=== PATIENT | female | born 2005 | race Two or more races ===

== ENCOUNTER 2024-07-30 23:30 | Emergency (ER) | payer OTHER ==
[~2024-07-30] VITALS: Ht 157.5 cm; Wt 65.8 kg
[2024-07-31] MEDS ORDERED: DIPHENHYDRAMINE HCL 50 MG/ML VIAL 1ML IM STA (00:38)
[2024-07-31] MEDS ORDERED: METHYLPREDNISOLONE SOD SUCC 125 MG VIAL IM STA (00:39)
[2024-07-31] MEDS ORDERED: METHYLPREDNISOLONE SOD SUCC 125 MG VIAL IV STA (00:39)
[2024-07-31] MEDS ORDERED: DIPHENHYDRAMINE HCL 50 MG/ML VIAL 1ML IV STA (00:39)
[2024-07-31] MEDS ORDERED: FAMOtidine 10 MG/ML (4ML VIAL) IV PUSH STA (00:40)
== END 2024-07-31 01:48 | disposition home or self-care (01) ==
LOC: ER 23:32
DX: O99.713 Diseases of the skin and subcutaneous tissue complicating pregnancy, third trimester (principal); L50.9 Urticaria, unspecified; Z3A.30 30 weeks gestation of pregnancy

== ENCOUNTER 2024-08-01 12:17 | Emergency (ER) | payer OTHER ==
[~2024-08-01] VITALS: Ht 162.6 cm; Wt 61.2 kg
[2024-08-01] MEDS ORDERED: FAMOTIDINE/PF 20 MG/2 ML VIAL IV PUSH ONE (13:45)
[2024-08-01 14:19] LABS: HEMATOCRIT 37.2 % (36.0-45.00); MEAN CELL VOLUME 89.2 fL (80.00-100.00); MEAN CORPUSCULAR HEMOGLOBIN 31.3 pg (27.00-32.0); PLATELET COUNT 130 K/uL (150-450); RED BLOOD COUNT 4.17 M/uL (4.00-6.00)
[2024-08-01 14:33] LABS: PH,URINE 6.5 (5.0-8.0); URINE APPEARANCE Clear; URINE BILIRRUBIN Negative (NEGATIVE); URINE BLOOD Negative; URINE COLOR Dark Yellow; URINE GLUCOSE Negative (NEGATIVE); URINE KETONE Negative (NEGATIVE); URINE LEUKOCYTE Small; URINE NITRATE Negative; URINE PROTEIN Trace (NEGATIVE)
[2024-08-01 14:37] LABS: URINE BACTERIA 4678.2 uL (0.0-1933); URINE EPITHELIAL CELLS 26.2 uL (0.0-38.8); URINE RBC 8.3 uL (0.0-20.8); URINE WBC 117.4 uL (0.0-23.2)
[2024-08-01 14:46] LABS: URINE CAST 0.61 uL (0.0-1.40)
[2024-08-01 14:46] LABS: ALBUMIN 2.7 gm/dL (3.4-5.0); BILIRUBIN TOTAL 0.74 mg/dL (0.3-1.2); CALCIUM 8.8 mg/dL (8.5-10.1); CREATININE SERUM 0.5 mg/dL (0.55-1.02); GFR 158.94; GLOBULINA 3.6 G/DL (2.4-3.5); POTASSIUM 3.73 mEq/L (3.5-5.1); TOTAL PROTEIN 6.3 gm/dL (6.4-8.2)
[2024-08-01] MEDS ORDERED: DIPHENHYDRAMINE HCL 50 MG/ML VIAL 1ML IM ONE (15:15)
== END 2024-08-01 16:03 | disposition home or self-care (01) ==
LOC: ER 12:18
PROVIDERS: General Practice
DX: L50.9 Urticaria, unspecified (principal); R21 Rash and other nonspecific skin eruption; Z20.822 Contact with and (suspected) exposure to COVID-19

== ENCOUNTER 2025-08-29 06:56 | Inpatient (IN) | payer OTHER ==
[~2025-08-29] VITALS: Ht 162.6 cm; Wt 64.4 kg
[2025-08-29] VITALS (8 sets, daily range): BP systolic 121–136; BP diastolic 60–81
[2025-08-29] MEDS ORDERED: RINGERS SOLUTION,LACTATED 1,000 ML IV SCH (07:15)
[2025-08-29] MEDS ORDERED: OXYTOCIN 500 ML IV SCH (07:15)
[2025-08-29] MEDS ORDERED: PRENATA CHEWAB1 EACH PO (07:33)
[2025-08-29 08:02] LABS: BASO % 1.0 % (0.1-1.2); EOS # 0.11 (0.04-0.54); EOS % 1.2 % (0.7-7.0); LYMPH # 2.15 (1.18-3.74); LYMPH % 23.8 % (19.3-53.1); MEAN PLATELET VOLUME 12.10 fl (9.4-12.4); MONO # 0.80 (0.24-0.82); MONO % 8.8 % (4.7-12.5); NEUT # 5.79 (1.56-6.13); NEUT % 64.1 % (34.0-71.1); RED CELL DISTRIBUTION WIDTH 16.6 % (11.6-14.4)
[2025-08-29 08:10] LABS: URINE APPEARANCE Clear; URINE BILIRRUBIN Negative (NEGATIVE); URINE BLOOD Negative; URINE COLOR Yellow; URINE GLUCOSE Negative (NEGATIVE); URINE KETONE Negative (NEGATIVE); URINE LEUKOCYTE Large; URINE NITRATE Negative; URINE PROTEIN Negative (NEGATIVE); URINE UROBILINOGEN 1.0 E.U./dl
[2025-08-29 08:13] LABS: URINE BACTERIA 2083.1 uL (0.0-1933); URINE EPITHELIAL CELLS 30.7 uL (0.0-38.8); URINE WBC 119.6 uL (0.0-23.2)
[2025-08-29 08:32] LABS: INR < 0.93
[2025-08-29 08:37] LABS: URINE CAST 0.73 uL (0.0-1.40); URINE RBC 1.6 uL (0.0-20.8)
[2025-08-29 08:38] LABS: TYPE CELLS SQUAMOUS
[2025-08-29 08:39] LABS: URINE YEAST MODERATE /hpf
[2025-08-29 08:55] LABS: ALT/SGPT 19.0 U/L (12-78); AST/SGOT 22.0 U/L (15-37); BILIRUBIN TOTAL 0.7 mg/dL (0.3-1.2); BUN CREA RATIO 14.0 (7.0-25.0); CREATININE SERUM 0.43 mg/dL (0.55-1.02); GFR 187.2; GLOBULINA 3.3 G/DL (2.4-3.5); GLUCOSE FASTING 75.0 mg/dL (65-100); OSMOLALITY SERUM 276.0 MOSM/KG (275-295)
[2025-08-29] MEDS ORDERED: CHLORHEXIDINE GLUCONATE 120 ML BOTTLE TOP ONE (11:15)
[2025-08-29] MEDS ORDERED: ERYTHROMYCIN BASE OPHT 1GM EACH TUBE OP ONE (11:30)
[2025-08-29] MEDS ORDERED: LIDOCAINE HCL 1% 10ML VIAL PERCUT ONE (11:45)
[2025-08-30 00:29] VITALS: BP 130/75
[2025-08-30 08:31] VITALS: BP 123/78
[2025-08-30] MEDS ORDERED: MEASLES,MUMPS,RUBELLA VACC/PF 1 VIAL VIAL SUBCUTANEO NR (11:45)
[2025-08-30 12:45] LABS: BASO % 0.5 % (0.1-1.2); EOS # 0.05 (0.04-0.54); EOS % 0.4 % (0.7-7.0); LYMPH # 2.18 (1.18-3.74); LYMPH % 16.8 % (19.3-53.1); MEAN PLATELET VOLUME 11.80 fl (9.4-12.4); MONO # 0.74 (0.24-0.82); MONO % 5.7 % (4.7-12.5); NEUT # 9.81 (1.56-6.13); NEUT % 75.7 % (34.0-71.1); RED CELL DISTRIBUTION WIDTH 16.7 % (11.6-14.4)
[2025-08-30 13:05] VITALS: BP 113/74
[2025-08-30 16:00] VITALS: BP 121/80
[2025-08-31 00:54] VITALS: BP 128/75
[2025-08-31 04:53] VITALS: BP 124/80
[2025-08-31 08:24] VITALS: BP 115/75
[2025-08-31 16:00] VITALS: BP 111/66
== END 2025-08-31 18:25 | disposition home or self-care (01) | DRG 807 ==
LOC: OB/GYN 06:56 → LDR 06:56 → OB/GYN 10:22
PROVIDERS: Obstetrics & Gynecology; ADMIT Specialist; ATTEND Specialist
PROC: 10E0XZZ Delivery of Products of Conception, External Approach (ICD-10-PCS; principal; 2025-08-29)
PROC: 0KQM0ZZ Repair Perineum Muscle, Open Approach (ICD-10-PCS; 2025-08-29)
PROC: 4A1HXCZ Monitoring of Products of Conception, Cardiac Rate, External Approach (ICD-10-PCS; 2025-08-29)
DX: O70.1 Second degree perineal laceration during delivery (principal); Z37.0 Single live birth; O13.4 Gestational [pregnancy-induced] hypertension without significant proteinuria, complicating childbirth; Z3A.38 38 weeks gestation of pregnancy